=== PATIENT | male | born 1990 | race Caucasian/White ===

== ENCOUNTER 2018-06-03 14:31 | Emergency (ER) | payer MEDICARE ==
[~2018-06-03] VITALS: Ht 175.3 cm; Wt 72.6 kg
== END 2018-06-03 18:35 | disposition short-term general hospital (02) ==
LOC: ED 14:31
DX: J98.2 Interstitial emphysema (principal); K22.3 Perforation of esophagus
CPT/HCPCS: 71260; 74177; 80053; 81001; 82150; 83690; 85025; 96361; 96372; 96374; 96375; 99284; J1170; J2405; J2543; J3370; J3486; J7030; Q9967